=== PATIENT | female | born 1950 | race Caucasian/White ===

== ENCOUNTER → 2023-12-17 08:12 | Outpatient (BNVA) | payer OTHER, SELFPAY | PROVIDERS: Visit Provider Internal Medicine | DX: S52.91XA Unspecified fracture of right forearm, initial encounter for closed fracture (principal); W18.30XA Fall on same level, unspecified, initial encounter | CPT/HCPCS: 73130; 99204 ==

== ENCOUNTER 2023-12-27 09:54 | Outpatient (REF) | payer OTHER, SELFPAY ==
--- NOTE | ~2023-12-27 | XR_ITS ---
EXAMINATION: XR HAND, RIGHT CLINICAL INFORMATION: Pain in right hand COMPARISON: 12/17/2023 TECHNIQUE: PA, lateral, and oblique views of the right hand. FINDINGS: Stable osseous alignment in the transversely oriented, mildly displaced distal radial metadiaphyseal fracture. There is some bony callus formation. No new fractures. No foreign body. XR/XR wrist RT w scaphoid IMPRESSION: Stable osseous alignment in the transversely oriented, mildly displaced distal radial metadiaphyseal fracture.
== END 2023-12-27 09:55 | disposition home or self-care (01) ==
LOC: HO.HOSX 09:54
PROVIDERS: Visit Provider Physician Assistant
DX: S52.501A Unspecified fracture of the lower end of right radius, initial encounter for closed fracture (principal)
CPT/HCPCS: 25600; 73110; 99202

== ENCOUNTER 2023-12-27 09:54 | Outpatient (AMB) | payer OTHER, SELFPAY ==
--- NOTE | 2023-12-27 09:56 | A.OFFVIS_ITS ---
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 Patient reports having a fall while she was at work pulling a cart of dinner trays injuring her right wrist and bruising on her knees. She was seen at [facility] and was referred to orthopedics. Currently she has had improvement in her pain however she continues to have discomfort in her wrist. Denies numbness or tingling. She was given a wrist brace at [facility] that she continues to wear at all times and removes only for hygiene purposes. 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 She works for [employer] and she states she was carrying a tray of food when she fell landing on her right wrist. She was seen by [facility] who ordered x-rays. She was placed in a velcro wrist splint and referred to our office for ortho eval. 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 There is mild swelling and bruising over the distal radius with tenderness over the fracture site. There is no pain over the elbow, negative forearm squeeze test. She has full range of motion of the elbow. She can fully extend all fingers and make a fist. Pulses are present and she is ne urovascularly intact. Office Procedures Casting/Splints 42899-Rzkx/Wrist Cast Application Procedure code (CPT) selection complete Fracture Care Fracture Billing Code: Fracture Billing Code Results Reviewed Results Reviewed: X-rays of the right wrist obtained in the office today show distal radius fracture Assessment & Plan Assessment & Plan (1) Distal radius fracture, right: Code(s): S52.501A - Unspecified fracture of the lower end of right radius, initial encounter for closed fracture Category: Medical Plan: I explained to the patient the extent of the injury and options available.? We can treat this conservatively but will have to watch her very closely to make sure there is no displacement.? She would have to do no lifting more than a cell phone.? This would mean no lifting, carrying, pushing, pulling, or repetitive use of the right upper extremity at work/home..? I did explain to her that conservative treatment would likely be a cast for 6 weeks.? If there is some displacement that occurs we may need to discuss surgical intervention which could require pinning verses plate and screws.? I also educated her on the risk factors of smoking and the effect that it can have on bone healing.? She does un derstand all this and will see me back in a week with repeat x-rays through the cast. She will remain out of work until further notice. Orders: Orders XR wrist RT w scaphoid Today M79.641 - Pain in right hand Coding Level of Care Code New Pt Level 3 (87925) Diagnoses Distal radius fracture, right S52.501A CPT Codes Casting - CPT: 97790-Jsox/Wrist Cast Application ([id number]) Fracture Care - Fracture Billing Code: Fracture Billing Code ([id number])
[2023-12-27 09:58] VITALS: BMI 25.2
== END 2023-12-27 11:08 | disposition home or self-care (01) ==
PROVIDERS: Visit Provider Physician Assistant
DX: S52.501A Unspecified fracture of the lower end of right radius, initial encounter for closed fracture (principal); W19.XXXA Unspecified fall, initial encounter; Z04.2 Encounter for examination and observation following work accident
CPT/HCPCS: 25600; 99203

== ENCOUNTER 2024-01-03 09:23 | Outpatient (AMB) | payer OTHER, SELFPAY ==
[2024-01-03 09:43] VITALS: BMI 25.2
--- NOTE | 2024-01-03 09:43 | MHC.OFFVIS ---
Vital Signs 01/03/24 09:43 Height 5 ft 6 in Weight 156 lb BMI 25.2 Intake Visit Reasons: OV-Rt distal radius fracture-xray in cast Intake Note: Elsie a 73 year old right hand dominant female who presents today for a follow up of right distal radius fx, DOI 12/17/23. Patient reports she is doing well, states discomfort with certain arm motions. Allergies No Known Allergies Allergy (Verified 01/03/24 09:45) Medication List - Last Reconciled 01/03/24 by Simeon Lindquist PA-C buspirone 10 mg PO BID escitalopram oxalate mg PO gabapentin 100 mg PO TID quetiapine mg PO rosuvastatin 20 mg PO BEDTIME HPI HPI OV-Rt distal radius fracture-xray in cast: Details: Elsie is a 73-year-old right-hand dominant female who presents today for a [facility] check follow-up of right distal radius fracture, DOI . She states that overall she is doing well. She states certain arm motiions cause her discomfort. 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 Review of Systems Const All systems reviewed & are unremarkable except as noted in HPI and below Physical Exam Vital Signs: BMI result Body Mass Index 25.2 Const General: cooperative, healthy appearing, comfortable and no acute distress Orientation/consciousness: patient oriented x3 Neck Neck: Yes normal visual inspection and Yes no JVD Chest Chest palpation & inspection: normal inspection of the chest Resp Effort & Inspection: normal respiratory effort Auscultation: clear to auscultation bilaterally, crackles (no), rales (no), rhonchi (no) and wheezes (no) Cardio Jugular venous distension: no JVD Rate: regular rate Rhythm: regular rhythm Heart sounds: S1 normal heart sound present, S2 normal heart sound present, Murmur heart sound present (no) and Rub heart sound present (no) Neuro General: patient oriented x3 Extrem Other: Right wrist: Cast is intact. She is able to move all digits. Cap refill is brisk. Sensation is intact. General: Yes normal to inspection, Yes no pedal edema and Yes no calf tenderness Psych Appearance: grossly normal Mental Status: mental status grossly normal Speech and movement: Normal speech and movement present Results Reviewed Results Reviewed: X-rays of the right wrist obtained in the office today with cast on shows stable fracture through the distal radius without further displacement. Assessment & Plan Assessment & Plan (1) Distal radius fracture, right: Code(s): S52.501A - Unspecified fracture of the lower end of right radius, initial encounter for closed fracture Category: Medical Qualifiers: Encounter type: subsequent encounter Fracture type: closed Fracture morphology: other fracture Fracture healing: with routine healing Qualified Code(s): S52.591D - Other fractures of lower end of right radius, subsequent encounter for closed fracture with routine healing Plan We discussed her findings on x-ray, which demonstrates stable fracture pattern when compared to last visit. She will remain in the cast for another 4 weeks. Advised her to no lifting more than a cell phone and if there is any concern, she will contact me sooner, otherwise follow up in 4 weeks with cast off. Orders: Orders XR wrist RT min 3V Today M25.531 - Pain in right wrist Patient Instructions: Scribed for Simeon Lindquist PA-C, by Helena Alfonso director medical writing, on 01/03/2024 at 9:30 AM EST. ISimeon PA-C, have personally reviewed and agree with the information entered by the scribe. Coding Level of Care Code Global (24254) Diagnoses Other closed fracture of distal end of right radius with routine healing, subsequent encounter S52.591D Encounter type: subsequent encounter Fracture type: closed Fracture morphology: other fracture Fracture healing: with routine healing
== END 2024-01-03 10:00 | disposition home or self-care (01) ==
PROVIDERS: Visit Provider Physician Assistant
DX: S52.591D Other fractures of lower end of right radius, subsequent encounter for closed fracture with routine healing (principal)
CPT/HCPCS: 99024

== ENCOUNTER 2024-01-03 09:23 | Outpatient (REF) | payer OTHER, SELFPAY ==
--- NOTE | ~2024-01-03 | XR_ITS ---
EXAMINATION: XR WRIST, RIGHT CLINICAL INFORMATION: Pain in right wrist COMPARISON: 12/27/2023 TECHNIQUE: PA, lateral, and oblique views of the right wrist. FINDINGS: Overlying casting material obscures fine bony detail. Stable osseous alignment in the transverse fracture of the distal radial metaphyseal. No new fractures. XR/XR wrist RT min 3V IMPRESSION: Stable osseous alignment in the distal radial metaphyseal fracture.
== END 2024-01-03 09:24 | disposition home or self-care (01) ==
LOC: HO.HOSX 09:23
PROVIDERS: Visit Provider Physician Assistant
DX: S52.591D Other fractures of lower end of right radius, subsequent encounter for closed fracture with routine healing (principal)
CPT/HCPCS: 73110; 99212

== ENCOUNTER 2024-02-02 13:00 | Outpatient (REF) | payer OTHER, SELFPAY ==
--- NOTE | ~2024-02-02 | XR_ITS ---
EXAMINATION: XR WRIST, RIGHT CLINICAL INFORMATION: Right wrist pain. COMPARISON: 01/03/2024 TECHNIQUE: PA, lateral, and oblique views of the right wrist. FINDINGS: The transverse distal radial fracture is more ill-defined as compared to prior with softened margins and bridging callus, consistent with progressive changes of healing. Mild ulnar positive variance (2 mm). Slight dorsal tilt of the distal radial articular surface. Minimal soft tissue swelling. Disuse osteopenia. 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 XR/XR wrist RT min 3V IMPRESSION: 1. Progressive healing of the distal radial fracture. 2. Mild ulnar positive variance. Electronically signed by: Jake James MD 02/08/2024 02:05 PM EDT
== END 2024-02-02 13:01 | disposition home or self-care (01) ==
LOC: HO.HOSX 13:00
PROVIDERS: Visit Provider Physician Assistant
DX: S52.501A Unspecified fracture of the lower end of right radius, initial encounter for closed fracture (principal); X58.XXXA Exposure to other specified factors, initial encounter; Y93.9 Activity, unspecified; Y92.9 Unspecified place or not applicable; Y99.9 Unspecified external cause status
CPT/HCPCS: 73110; 99212

== ENCOUNTER 2024-02-02 13:29 | Outpatient (AMB) | payer OTHER, SELFPAY ==
--- NOTE | 2024-02-02 13:31 | MHC.OFFVIS ---
Intake Visit Reasons: OV-Rt distal radius fracture 4 wk f/u Intake Note: Elsie a 73 year old right hand dominant female who presents today for a WC follow up of right distal radius fx, DOI 12/17/23. Cast off and xrays updated. Patient reports she is doing well, she has stiffness coming out of cast. She has no concerns today. Allergies No Known Allergies Allergy (Verified 02/02/24 13:37) Medication List - Last Reconciled 02/02/24 by Simeon Lindquist PA-C buspirone 10 mg PO BID escitalopram oxalate mg PO gabapentin 100 mg PO TID quetiapine mg PO rosuvastatin 20 mg PO BEDTIME HPI HPI OV-Rt distal radius fracture 4 wk f/u: Details: 74-year-old right hand dominant female who returns to the office today for a follow-up of right wrist fracture, 12/17/23. She states she has stiffness coming out of the cast however she is doing well otherwise. She has no other concerns today. 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 Review of Systems Const All systems reviewed & are unremarkable except as noted in HPI and below Physical Exam Const General: cooperative, healthy appearing, comfortable and no acute distress Orientation/consciousness: patient oriented x3 Neck Neck: Yes normal visual inspection and Yes no JVD Chest Chest palpation & inspection: normal inspection of the chest Resp Effort & Inspection: normal respiratory effort Auscultation: clear to auscultation bilaterally, crackles (no), rales (no), rhonchi (no) and wheezes (no) Cardio Jugular venous distension: no JVD Rate: regular rate Rhythm: regular rhythm Heart sounds: S1 normal heart sound present, S2 normal heart sound present, Murmur heart sound present (no) and Rub heart sound present (no) Neuro General: patient oriented x3 Extrem Other: Right wrist:Skin intact, no swelling or bruising. No tenderness along the distal radius. She is able to move all digits. Cap refill is brisk. Sensation is intact. General: Yes normal to inspection, Yes no pedal edema and Yes no calf tenderness Psych Appearance: grossly normal Mental Status: mental status grossly normal Speech and movement: Normal speech and movement present Results Reviewed Results Reviewed: X-rays of the right wrist obtained today show stable fracture through the distal radius without further displacement and interval healing. Assessment & Plan Assessment & Plan (1) Distal radius fracture, right: Code(s): S52.501A - Unspecified fracture of the lower end of right radius, initial encounter for closed fracture Category: Medical Qualifiers: Encounter type: subsequent encounter Fracture healing: with routine healing Fracture morphology: other fracture Fracture type: closed Qualified Code(s): S52.591D - Other fractures of lower end of right radius, subsequent encounter for closed fracture with routine healing Plan She was transitioned to a Velcro wrist splint which she will wear with activities and when out of house. She can remove splint for hygiene, working on exercises, and light activities at house. She will return to work on February 07 driving only. I would like to see her back in 6 weeks with new x-rays, sooner if needed. Orders: Orders XR wrist RT min 3V Today M25.531 - Pain in right wrist OT Evaluation and Treatment Today S52.591D - Other fractures of lower end of right radius, subsequent encounter for closed fracture with routine healing Patient Instructions: Scribed for Simeon Lindquist PA-C, by Gerardo Cao biomedical engineering professor, on 02/02/2024 at 1:45 PM EST.? I, Simeon Lindquist PA-C, have personally reviewed and agree with the information entered by the scribe. Coding Level of Care Code Global (92319) Diagnoses Other closed fracture of distal end of right radius with routine healing, subsequent encounter S52.591D Encounter type: subsequent encounter Fracture healing: with routine healing Fracture morphology: other fracture Fracture type: closed
== END 2024-02-02 13:47 | disposition home or self-care (01) ==
PROVIDERS: Visit Provider Physician Assistant
DX: S52.591D Other fractures of lower end of right radius, subsequent encounter for closed fracture with routine healing (principal)
CPT/HCPCS: 99024

== ENCOUNTER 2024-03-13 14:34 | Outpatient (REF) | payer OTHER, MEDICARE, SELFPAY | END 2024-03-13 14:35 | disposition home or self-care (01) | LOC: HO.HOSX 14:34 | PROVIDERS: PCP Family Medicine; Visit Provider Physician Assistant | DX: M25.531 Pain in right wrist (principal); S52.591D Other fractures of lower end of right radius, subsequent encounter for closed fracture with routine healing | CPT/HCPCS: 73110; 99212 ==

== ENCOUNTER 2024-03-13 15:03 | Outpatient (AMB) | payer OTHER, SELFPAY ==
--- NOTE | 2024-03-13 15:14 | MHC.OFFVIS ---
Intake Visit Reasons: OV-Rt distal radius fracture 6 wk f/u Intake Note: Elsie a 73 year old right hand dominant female who presents today for a WC follow up of right distal radius fx, DOI 12/17/23. Patient reports she is doing well, she continues to attend OT. States throughout the day she experiences discomfort that she describes as an ache. Allergies No Known Allergies Allergy (Verified 03/13/24 15:15) Medication List - Last Reconciled 03/13/24 by Simeon Lindquist PA-C buspirone 10 mg PO BID escitalopram oxalate mg PO gabapentin 100 mg PO TID quetiapine mg PO rosuvastatin 20 mg PO BEDTIME HPI HPI OV-Rt distal radius fracture 6 wk f/u: Details: 74-year-old right hand dominant female who returns to the office today for a WC follow-up of right wrist fracture, 12/17/23. She continues to have pain in her wrist that gets aggravated and achy throughout the day. She has been attending occupational therapy as instructed. 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 Review of Systems Const All systems reviewed & are unremarkable except as noted in HPI and below Physical Exam Const General: cooperative, healthy appearing, comfortable and no acute distress Orientation/consciousness: patient oriented x3 Neck Neck: Yes normal visual inspection and Yes no JVD Chest Chest palpation & inspection: normal inspection of the chest Resp Effort & Inspection: normal respiratory effort Auscultation: clear to auscultation bilaterally, crackles (no), rales (no), rhonchi (no) and wheezes (no) Cardio Jugular venous distension: no JVD Rate: regular rate Rhythm: regular rhythm Heart sounds: S1 normal heart sound present, S2 normal heart sound present, Murmur heart sound present (no) and Rub heart sound present (no) Neuro General: patient oriented x3 Extrem Other: Right wrist:Skin intact, no swelling or bruising. No tenderness along the distal radius. She is able to move all digits. Cap refill is brisk. Sensation is intact. General: Yes normal to inspection, Yes no pedal edema and Yes no calf tenderness Psych Appearance: grossly normal Mental Status: mental status grossly normal Speech and movement: Normal speech and movement present Results Reviewed Results Reviewed: X-rays of the right wrist obtained in the office today show significant callous formation and healing of the distal radius fracture. Assessment & Plan Assessment & Plan (1) Distal radius fracture, right: Code(s): S52.501A - Unspecified fracture of the lower end of right radius, initial encounter for closed fracture Category: Medical Qualifiers: Encounter type: subsequent encounter Fracture healing: with routine healing Fracture morphology: other fracture Fracture type: closed Qualified Code(s): S52.591D - Other fractures of lower end of right radius, subsequent encounter for closed fracture with routine healing Plan She will continue with physical therapy to work on strengthening. I anticipate she returns to work on 04/03/24 working without restrictions. If symptoms persist or worsen, patient will contact the office, otherwise follow-up as needed. Orders: Orders XR wrist RT min 3V 03/13/24 M25.531 - Pain in right wrist Patient Instructions: Scribed for Simeon Lindquist PA-C, by Gerardo Cao medical art therapist, on 03/13/2024 at 2:30 PM EST.? I, Simeon Lindquist PA-C, have personally reviewed and agree with the information entered by the scribe. Coding Level of Care Code Global (46347) Diagnoses Other closed fracture of distal end of right radius with routine healing, subsequent encounter S52.591D Encounter type: subsequent encounter Fracture healing: with routine healing Fracture morphology: other fracture Fracture type: closed
== END 2024-03-13 15:29 | disposition home or self-care (01) ==
LOC: HO.HOS 15:03
PROVIDERS: Visit Provider Physician Assistant
DX: S52.591D Other fractures of lower end of right radius, subsequent encounter for closed fracture with routine healing (principal)
CPT/HCPCS: 99024

== ENCOUNTER 2024-03-30 14:00 | Outpatient (RCR) | payer OTHER, MEDICARE, SELFPAY ==
--- NOTE | 2024-02-17 13:54 | MHC.OT.EP ---
[address] [phone] Occupational Therapy Plan of Care Patient Name: Elsie Nielsen Date of Evaluation: 02/17/24 Diagnosis: Right DRF Pain Location: Generally pain free at rest Ache in dorsal hand, some pain w/ rotational movements Tenderness in ulnar wrist Pain Score: 5 Pain Scale Used: Numeric (0 - 10) Aggravating Factors: Gripping, using for extended time Alleviating Factors: Brace for support, Tylenol PRN Assessment: 74 yo female was at work pulling a stack of racks, fell backwards onto her right arm. She went to [facility], x-rays showed mildly displaced distal radius fx. She was placed in a brace and then week later was casted until 02/02/24. She is now in prefab removable orthosis and referred to therapy for continued treatment. She presents today w/ prefab orthosis on right wrist. She is pain free at rest, pain increased w/ light daily use, but also w/ rotation. She has visible edema and tenderness to palpate over ulnar fovea; no increased pain with gripping but we will be mindful of ulnar wrist. She has decreased wrist range at 40/50 and decreased curer acid drum at 25lb, but I anticipate she will do well w/ course of therapy to progress range and strength w/ goal of return to work and full daily activities. 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 Thank you once again for your referral.
--- NOTE | 2024-03-31 11:07 | MHC.OT.DC ---
[address] [phone] F: [phone] Occupational Therapy Discharge Note Patient Name: Elsie Nielsen Provider: Simeon Lindquist PA-C Diagnosis: Right DRF Date of Evaluation: 02/17/24 Date of Discharge: 03/30/24 Treatments to Date: 10 Discharge Summary: Elsie was referred to OT with right distal radius fracture. 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 She has increased pain in ulnar wrist w/ rotation and weightbearing through palm. Very limited w/ weightbearing assessment and pain radiates up ulnar side of wrist, still w/ edema noted. She reports comfort with Wrist Widget which provides DRUJ support while allowing for mobility of hand and wrist. She is Ind w/ HEP but difficulty progressing more w/ rotation and weight bearing through palm or carrying items w/ palm up position. If pain continues over next several weeks, recommend return to MD for further work-up of ulnar wrist pain, weakness and edema with possible TFCC involvement. Electronically Signed By: GRISEL Braden/Melyssa CHT Reviewed/agree with student documentation: Yes Therapist: GRISEL Ocampo/Melyssa Please Sign and return to therapist, thank you for your referral.
== END 2024-03-31 11:08 | disposition home or self-care (01) ==
LOC: HO.OT 14:00
PROVIDERS: PCP Family Medicine; Visit Provider Physician Assistant
DX: S52.591D Other fractures of lower end of right radius, subsequent encounter for closed fracture with routine healing (principal)
CPT/HCPCS: 97110; 97140; 97165